=== PATIENT | male | born 1960 | race Caucasian/White ===

== ENCOUNTER 2017-10-11 07:59 | Emergency (ER) | payer SELFPAY ==
[2017-10-11] MEDS ORDERED: Ondansetron HCl/PF 4 MG/2 ML Vial ONE (08:31)
[2017-10-11] MEDS ORDERED: Famotidine/PF 20 mg/2ml Vial ONE (08:32)
[2017-10-11 08:37] LABS: #Basophils 0.1 thou/uL (0.0-0.2); #Eosinphils 0.4 thou/uL (0.0-0.7); #Lymphocytes 0.5 thou/uL (1.20-3.40); #Monocytes 1.5 thou/uL (0.11-0.59); #Neutrophils 10.3 thou/uL (1.40-6.50); %Basophils 0.9 % (0.0-1.0); %Eosinophils 2.9 % (0.0-10.0); %Lymphocytes 3.8 % (21.0-51.0); %Monocytes 11.8 % (0.0-10.0); %Neutrophils 80.7 % (42.0-75.0); Hemoglobin 12.3 g/dL (14.0-18.0); Mean Corpuscular HGB CONC 30.5 g/dL (32.0-36.0); Mean Corpuscular Hemoglobin 25.6 pg (27.0-31.0); Mean Corpuscular Volume 83.9 fl (80.0-94.0); Platelet Count 312 thou/uL (130-400); RBC Distribution Width 14.6 % (11.5-14.5); Red Blood Cell (RBC) Count 4.81 mill/uL (4.70-6.10); White Blood Cell (WBC) Count 12.7 thou/uL (4.8-10.8)
[2017-10-11 08:50] LABS: ALT (SGPT) 16 U/L (8-55); AST (SGOT) 17 U/L (5-34); Albumin 4.1 g/dL (3.5-5.0); Alkaline Phosphatase 92 U/L (40-150); Anion Gap 14 mmol/L (10-20); BUN (Urea Nitrogen) 10 mg/dL (8.4-25.7); Bilirubin, Total 0.2 mg/dL (0.2-1.2); Calc. Creatinine Clearance 0 mL/min (70-130); Calcium 9.9 mg/dL (7.8-10.44); Carbon Dioxide 24 mmol/L (22-29); Chloride 104 mmol/L (98-107); Estimated GFR-MDRD 82; Globulin 3.6 g/dL (2.4-3.5); Glucose 128 mg/dL (70-105); Potassium 3.6 mmol/L (3.5-5.1); Protein, Total 7.7 g/dL (6.0-8.3); Sodium 138 mmol/L (136-145)
--- NOTE | 2017-10-11 09:28 | RAD ---
RADIOGRAPH CHEST 1 VIEW RADIOGRAPH ABDOMEN 2 VIEWS: Date: 10/11/17. Time: 9:44 a.m. HISTORY: A 57-year-old male with nausea, emesis, fever, body aches, and cough. FINDINGS: Visualized lung mcguire are clear. Mild ectasia of thoracic aorta. Otherwise cardiomediastinal silho uette is within normal limits. The lateral costophrenic angles are sharp. No pneumothorax. No evidence of pneumoperitoneum. Gas and a moderate amount of stool in a prominent, redundant loop o f colon to the right of midline, probably sigmoid colon. Gas within a few mildly prominent small bow el loops in the left upper quadrant up to 2.5 cm in caliber, without differential air fluid levels. No evidence of organomegaly. IMPRESSION: 1. Nonspecific bowel gas pattern without overt evident of small bowel obstruction. 2. No acute cardiopulmonary findings. ELIN [] POS: [facility]
[2017-10-11] MEDS ORDERED: Albuterol Sulfate 2.5 mg/3 ml Neb ONE (09:57)
[2017-10-11] MEDS ORDERED: ISOVUE-370 76%-LOCM 1 ML ONE (11:16)
[2017-10-11] MEDS ORDERED: Benzonatate 100 MG CAP ONE (11:41)
--- NOTE | 2017-10-11 12:21 | CT ---
CTA THORAX WITH CONTRAST: (Computed Tomographic Angiography, chest(noncoronary) with contrast material, and image postprocessin g) (PE protocol) DATE: 10/11/17. TIME: 11:24 a.m. HISTORY: A 57-year-old male with tachycardia, hypoxemia, and cough. TECHNIQUE: IV injection of iodinated contrast. Scan acquisition timing attempted to coincide with iodinated contrast bolus reaching maximal density in pulmonary arteries. 3D MIP reconstructions. FINDINGS: No pulmonary thromboembolism is identified. No thoracic aortic dissection or aneurysm. Chronic mild biapical pleural densities abutting the apical pleural surfaces. No consolidation, pulmonary edema, bronchiectasis, pleural effusion, or pneumothorax. No mediastinal or hilar lymphadenopathy. Cysts at the upper pole parenchyma of the right kidney. Distended gallbladder without gallbladder wall thi ckening or pericholecystic edema. No mediastinal or hilar lymphadenopathy. IMPRESSION: No evidence of pulmonary thromboembolism. janette[] POS: [facility]
== END 2017-10-11 13:29 | disposition home or self-care (01) ==
LOC: ERS 07:59
DX: R11.2 Nausea with vomiting, unspecified (principal); R05 Cough; F41.9 Anxiety disorder, unspecified; F32.9 Major depressive disorder, single episode, unspecified; Z79.899 Other long term (current) drug therapy
CPT/HCPCS: 71275; 74022; 80053; 83605; 85025; 87804; 96361; 96372; 96374; 96375; J2405; J7611; S0028

== ENCOUNTER 2018-03-02 14:41 | Emergency (ER) | payer SELFPAY ==
[2018-03-02] MEDS ORDERED: diphenhydrAMINE 50 MG/ML VIAL ONE (15:33)
[2018-03-02] MEDS ORDERED: Metoclopramide HCl 10 MG/2 ML VIAL ONE (15:34)
[2018-03-02] MEDS ORDERED: Ketorolac Tromethamine 30 MG/ML VIAL ONE (15:34)
[2018-03-02] MEDS ORDERED: Magnesium Sulfate 2 GM/100 ML BAG ONE (17:09)
[2018-03-02] MEDS ORDERED: Water For Inject, Bacteriostat 30 ML ONE (17:09)
[2018-03-02] MEDS ORDERED: methylPREDNISolone Sod Succ/PF 125 MG/2 ML VIAL ONE (17:09)
== END 2018-03-02 18:21 | disposition home or self-care (01) ==
LOC: ERS 14:41
DX: R51 Headache (principal); I10 Essential (primary) hypertension; G43.909 Migraine, unspecified, not intractable, without status migrainosus; F41.9 Anxiety disorder, unspecified; F32.9 Major depressive disorder, single episode, unspecified; Z79.899 Other long term (current) drug therapy
CPT/HCPCS: 96365; 96367; 96375; J1200; J1885; J2765; J2930; J3475

== ENCOUNTER 2018-03-08 07:03 | Emergency (ER) | payer SELFPAY ==
[2018-03-08] MEDS ORDERED: diphenhydrAMINE 50 MG/ML VIAL ONE (07:44)
[2018-03-08] MEDS ORDERED: Metoclopramide HCl 10 MG/2 ML VIAL ONE (07:44)
[2018-03-08] MEDS ORDERED: Ondansetron ODT 4 MG TAB ONE (08:53)
[2018-03-08] MEDS ORDERED: Dexamethasone 10 MG/ML VIAL ONE (09:15)
[2018-03-08] MEDS ORDERED: Magnesium Sulfate 2 GM/100 ML BAG ONE (09:15)
[2018-03-08] MEDS ORDERED: Acetaminophen 500 MG TAB ONE (09:15)
--- NOTE | 2018-03-08 11:28 | CT ---
CT BRAIN NONCONTRAST: Date: 03/08/18 Time: 0919 hours HISTORY: 57-year-old male with headache, nausea, and vomiting. COMPARISON: 11/12/06. FINDINGS: There is no midline shift or any other mass effect. There is no evidence of acute intracranial hemor rhage, large cortical infarct, obstructive hydrocephalus, or extraaxial fluid collection. The calvar ium is intact. There is mild enlargement of the lateral, third, and fourth ventricles, unchanged since 11/12/06. The re is no interval change overall. The bilateral tympanomastoid cavities, and the sphenoid and frontal sinuses, are grossly clear. IMPRESSION: 1. No acute intracranial findings. 2. Mild chronic ventriculomegaly, unchanged since 2006. janette medley POS: [facility]
== END 2018-03-08 10:50 | disposition home or self-care (01) ==
LOC: ERS 07:03
DX: R51 Headache (principal); I10 Essential (primary) hypertension; F41.9 Anxiety disorder, unspecified; F32.9 Major depressive disorder, single episode, unspecified; G43.909 Migraine, unspecified, not intractable, without status migrainosus; Z79.899 Other long term (current) drug therapy
CPT/HCPCS: 70450; 96365; 96367; 96375; J1100; J1200; J2765; J3475; Q0162

== ENCOUNTER 2018-03-10 11:51 | Inpatient (IN) | payer SELFPAY ==
[~2018-03-10 11:51] MED LIST: Iopamidol 370 76% 100 ML VIAL ONE
[2018-03-10 12:22] LABS: #Eosinphils 0.1 thou/uL (0.0-0.7); #Lymphocytes 1.3 thou/uL (1.20-3.40); #Monocytes 0.7 thou/uL (0.11-0.59); #Neutrophils 6.5 thou/uL (1.40-6.50); %Basophils 0.5 % (0.0-1.0); %Eosinophils 1.2 % (0.0-10.0); %Lymphocytes 14.5 % (21.0-51.0); %Monocytes 8.1 % (0.0-10.0); %Neutrophils 75.7 % (42.0-75.0); Mean Corpuscular HGB CONC 32.4 g/dL (32.0-36.0); Mean Corpuscular Hemoglobin 27.1 pg (27.0-31.0); Mean Corpuscular Volume 83.7 fl (80.0-94.0); Mean Platelet Volume 6.9 fL (7.4-10.4); Platelet Count 297 thou/uL (130-400); RBC Distribution Width 12.7 % (11.5-14.5); Red Blood Cell (RBC) Count 4.43 mill/uL (4.70-6.10); White Blood Cell (WBC) Count 8.6 thou/uL (4.8-10.8)
[2018-03-10 12:44] LABS: ALT (SGPT) 55 U/L (8-55); AST (SGOT) 47 U/L (5-34); Albumin 3.9 g/dL (3.5-5.0); Alkaline Phosphatase 70 U/L (40-150); Anion Gap 14 mmol/L (10-20); BUN (Urea Nitrogen) 32 mg/dL (8.4-25.7); Bilirubin, Total 0.2 mg/dL (0.2-1.2); CK (CPK) 161 U/L (30-200); Calc. Creatinine Clearance 0 mL/min (70-130); Calcium 9.3 mg/dL (7.8-10.44); Carbon Dioxide 21 mmol/L (22-29); Chloride 107 mmol/L (98-107); Estimated GFR-MDRD 48; Globulin 3.1 g/dL (2.4-3.5); Glucose 158 mg/dL (70-105); Lipase 28 U/L (8-78); Potassium 3.4 mmol/L (3.5-5.1); Sodium 139 mmol/L (136-145)
[2018-03-10 12:48] LABS: CKMB 3.8 ng/mL (0-6.6); Troponin I 0.196 ng/mL (< 0.028)
--- NOTE | 2018-03-10 13:08 | RAD ---
PORTABLE CHEST: Date: 03/10/18 HISTORY: Chest pain. FINDINGS: Lungs are clear. Heart and mediastinum appear normal. Vasculature is normal. IMPRESSION: No acute abnormality. POS: [facility]
[2018-03-10] MEDS ORDERED: Nitroglycerin 2% Ointment 1 INCH/1 GM Packet ONE (13:15)
[2018-03-10] MEDS ORDERED: Ondansetron HCl/PF 4 MG/2 ML Vial IVP PRN (13:28)
[2018-03-10] MEDS ORDERED: Ondansetron ODT 4 MG TAB PO PRN (13:28)
[2018-03-10] MEDS ORDERED: Sodium Chloride 0.9% 1,000 ML IV SCH (13:30)
[2018-03-10] MEDS ORDERED: Enoxaparin Sodium 80 MG/0.8 ML SYRINGE SC SCH (13:30)
[2018-03-10] MEDS ORDERED: Morphine 4 MG/ML Carpuject SLOW IVP PRN (13:37)
[2018-03-10] MEDS ORDERED: Potassium Chloride 20 MEQ TAB PO SCH (13:45)
[2018-03-10] MEDS ORDERED: Lidocaine 1% (PF) 30 ML VIAL ONE (14:07)
[2018-03-10] MEDS ORDERED: Midazolam HCl 2 mg/2 ml Vial ONE (14:23)
[2018-03-10] MEDS ORDERED: Fentanyl 100 MCG/2 ML VIAL ONE (14:23)
[2018-03-10] MEDS ORDERED: Clopidogrel Bisulfate 75 MG TAB PO SCH (14:30)
--- NOTE | 2018-03-10 14:39 | PDOC.EVN ---
Event Note - Event Note Event Note: H&P dictated. [id number]
[2018-03-10] MEDS ORDERED: Heparin 5,000 UNITS/ML VIAL SC SCH (15:00)
--- NOTE | 2018-03-10 15:37 | CON ---
DATE OF CONSULTATION: 03/10/2018 HISTORY OF PRESENT ILLNESS: Patient is a 57-year-old gentleman who presents for evaluation of chest discomfort. The patient has no previous cardiac history. He states a few years ago he had substernal chest discomfort. He did not seek medical attention. The patient was in his usual state of health until yesterday when he developed substernal left-sided chest discomfort. The discomfort lasted for approximately an hour. The painresolved and then subsequently returned. He came to the emergency room for further evaluation. The patient denies having any present chest discomfort. PAST MEDICAL HISTORY: Depression. PAST SURGICAL HISTORY: Knee surgery and hand surgery. SOCIAL HISTORY: Nonsmoker. ALLERGIES: No known drug allergies. MEDICATIONS: Seroquel 300 daily, doxepin 10 daily, Synthroid 125 mcg daily, Norvasc 2.5 daily, Imitrex 100 daily, and lorazepam 2 mg p.r.n. PHYSICAL EXAMINATION: GENERAL: Well-developed gentleman in no acute distress. VITAL SIGNS: His blood pressure is 147/85. NECK: No jugular distention, no carotid bruits. LUNGS: Clear to auscultation. HEART: Regular rate and rhythm, normal S1, S2, no murmurs. ABDOMEN: Nondistended. EXTREMITIES: Show no edema. SKIN: Warm and dry. LABORATORY DATA AND IMAGING DATA: White blood cell count was 8.6, hemoglobin 12.0, hematocrit 37.1, platelets were 297. Sodium was 139, potassium 3.4, chloride 106, bicarbonate 21, BUN 32, creatinine is 1.5. Troponin 0.196. EKG revealed normal sinus rhythm, nonspecific ST-T wave abnormality. IMPRESSION: 1. Chest pain suggestive of angina. 2. Hypertension. 3. Elevated troponin level. 4. History of depression. This gentleman presents with chest pain suggestive of angina. His troponin is indeterminate, but elevated. I discussed the option of medical therapy and stress testing versus an invasive evaluation. The patient strongly forced to have a definitive diagnosis, He prefers to undergo cardiac catheterization for definitive diagnosis. I explained the risk of cardiac catheterization including IL, bleeding, stroke, cardiac arrhythmia, and cardiac . The patient understands these risks and wishes to proceed. PLAN: Proceed with cardiac catheterization. IESHA
--- NOTE | 2018-03-10 15:38 | HP ---
DATE OF ADMISSION: 03/10/2018 PRIMARY CARE PHYSICIAN: Juliana with Dr. Hill. CHIEF COMPLAINT: Chest pain. HISTORY OF PRESENT ILLNESS: The patient is a 57-year-old gentleman with no past cardiac history, but with a history of hypertension, hyperlipidemia who presents for chest pain that started yesterday. The patient was at work and he felt some chest tightness and substernal pressure and the pain radiate d down his left arm. He reports no diaphoresis or nausea, but he did feel dizzy. He denies any exer tional shortness of breath. He stated that the pain subsided, but came back at a lower intensity tod ay. He stated that the pain was substernal again, but radiated around to his back. He came to the e mergency department. Vitals were stable. The patient did have a slightly elevated troponin of 0.196 , but creatinine was 1.5, which is slightly more elevated than normal. Lipase was negative. He did have slightly low potassium with a potassium of 3.4. The patient states that at this time his pain i s around 4/10. REVIEW OF SYSTEMS: A 12-point review of systems is negative except that specified in the HPI. PAST MEDICAL HISTORY/PAST SURGICAL HISTORY: The patient has a history of hypertension, hyperlipidemi a, right knee surgery as well as right hand surgery in the past. SOCIAL HISTORY: No history of smoking, alcohol or any illicit drugs. FAMILY HISTORY: Father had coronary artery disease and had 3 MIs, unclear what age that happened at. HOME MEDICATIONS: 1. Norvasc 2.5 mg p.o. daily. 2. Doxepin 20 mg once a day at bedtime. 3. Imitrex 100 mg p.o. q.6 hours p.r.n. 4. Synthroid 125 mcg p.o. daily. 5. Seroquel 300 mg 2 tabs p.o. once a day in the evening. 6. Ativan 2 mg p.o. p.r.n. ALLERGIES: No known drug allergies. PHYSICAL EXAMINATION: VITAL SIGNS: In the ED, temperature 97.9, respirations are 16, pulse 86, blood pressure is 127/86. GENERAL: Awake, alert and oriented, in no acute distress. HEENT: Mucous membranes moist. NECK: No JVD. HEART: Regular rate and rhythm. No murmurs, rubs or gallops. Pain is not reproducible on palpation . LUNGS: Clear to auscultation bilaterally. ABDOMEN: Nontender, nondistended. EXTREMITIES: No cyanosis, clubbing or edema. LABORATORY DATA: Sodium 139, potassium 3.4, chloride 107, bicarbonate 21, BUN 32, creatinine 1.5, gl ucose 158, calcium 9.3, AST 47, ALT 55, alkaline phosphatase 70, creatinine kinase 161. Troponins at 0.196, albumin 3.9, lipase 28. CBC demonstrates a white count of 8.6, hemoglobin of 12, hematocrit of 37.1 and platelets of 297,000. Chest x-ray was negative for any acute abnormalities. I did perso regla review the EKG obtained and it does demonstrate some T-wave flattening. ASSESSMENT AND PLAN: The patient is 57-year-old gentleman with a past medical history of hypertensio n, hyperlipidemia and hypothyroidism who presents with chest pain. There are some minimally elevated troponins. However, in the setting of chest pain and cardiac risk factors, I would consider this a non-ST elevation myocardial infarction. 1. Non-ST elevation myocardial infarction. I did call Dr. Ross from Cardiology. We will attemp t to get the patient's pain under control with either nitroglycerin drip or nitro paste. We have alr samir given 4 chewable baby aspirin. We will give one dose of Plavix as well. Cardiology did state t o hold off on heparin drip per subcutaneous Lovenox in case of cardiac catheterization. Morphine p.r .n. for pain as well. We will trend out cardiac biomarkers. 2. Acute kidney injury with hypokalemia: Hydrate with normal saline. Replete potassium. 3. Hypertension: Well controlled. Restart home medications of Norvasc. May need a beta joyce de pending on cardiac evaluation. 4. Hypothyroidism: Continue Synthroid. 5. Deep venous thrombosis prophylaxis: Subcutaneous heparin. 6. The patient is a full code and this was confirmed at bedside.
[2018-03-10 15:50] VITALS: BMI 28.6
[2018-03-10 16:31] LABS: Anion Gap 11 mmol/L (10-20); BUN (Urea Nitrogen) 28 mg/dL (8.4-25.7); Calc. Creatinine Clearance 79 mL/min (70-130); Calcium 8.7 mg/dL (7.8-10.44); Carbon Dioxide 22 mmol/L (22-29); Chloride 108 mmol/L (98-107); Estimated GFR-MDRD 62; Glucose 80 mg/dL (70-105); Potassium 3.7 mmol/L (3.5-5.1); Sodium 137 mmol/L (136-145)
[2018-03-10 16:39] LABS: Troponin I 0.159 ng/mL (< 0.028)
[2018-03-10] MEDS: Sodium Chloride 0.9% 1,000 ML IV SCH (17:04)
[2018-03-10] MEDS: Acetaminophen 500 MG TAB PO PRN (18:59)
[2018-03-10] MEDS ORDERED: Atorvastatin Calcium 40 MG TAB PO SCH (21:00)
[2018-03-10] MEDS ORDERED: Lorazepam 1 MG TAB PO SCH (21:00)
[2018-03-10] MEDS ORDERED: Doxepin HCl 10 MG CAP PO SCH (21:00)
[2018-03-11] MEDS: Sodium Chloride 0.9% 1,000 ML IV SCH (03:36)
[2018-03-11 05:22] LABS: #Eosinphils 0.1 thou/uL (0.0-0.7); #Lymphocytes 1.3 thou/uL (1.20-3.40); #Monocytes 0.8 thou/uL (0.11-0.59); #Neutrophils 4.2 thou/uL (1.40-6.50); %Basophils 0.6 % (0.0-1.0); %Lymphocytes 19.7 % (21.0-51.0); %Monocytes 12.5 % (0.0-10.0); %Neutrophils 65.1 % (42.0-75.0); Hemoglobin 11.1 g/dL (14.0-18.0); Mean Corpuscular HGB CONC 30.4 g/dL (32.0-36.0); Mean Corpuscular Hemoglobin 25.8 pg (27.0-31.0); Mean Corpuscular Volume 84.8 fl (80.0-94.0); Mean Platelet Volume 6.7 fL (7.4-10.4); Platelet Count 259 thou/uL (130-400); RBC Distribution Width 12.7 % (11.5-14.5); Red Blood Cell (RBC) Count 4.32 mill/uL (4.70-6.10); White Blood Cell (WBC) Count 6.4 thou/uL (4.8-10.8)
[2018-03-11 05:36] LABS: ALT (SGPT) 50 U/L (8-55); AST (SGOT) 32 U/L (5-34); Albumin 3.4 g/dL (3.5-5.0); Alkaline Phosphatase 64 U/L (40-150); Anion Gap 10 mmol/L (10-20); BUN (Urea Nitrogen) 23 mg/dL (8.4-25.7); Bilirubin, Total 0.2 mg/dL (0.2-1.2); Calc. Creatinine Clearance 111 mL/min (70-130); Calcium 8.5 mg/dL (7.8-10.44); Carbon Dioxide 21 mmol/L (22-29); Chloride 110 mmol/L (98-107); Estimated GFR-MDRD Greater than 90; Globulin 2.6 g/dL (2.4-3.5); Glucose 113 mg/dL (70-105); Potassium 4.1 mmol/L (3.5-5.1); Sodium 137 mmol/L (136-145)
[2018-03-11] MEDS ORDERED: Levothyroxine Sodium 125 MCG TAB PO SCH (06:00)
[2018-03-11 08:18] VITALS: BP 138/78; TEMP 97.6
--- NOTE | 2018-03-11 08:30 | PDOC.PN ---
- Subjective Encounter Start Date: 03/11/18 Encounter Start Time: 08:28 Subjective: no chest pain - Objective MAR Reviewed: Yes Vital Signs & Weight: Vital Signs (12 hours) Temp Pulse Resp BP Pulse Ox 03/11/18 07:20 97.6 F 76 16 138/78 97 03/11/18 03:17 97.8 F 72 16 162/83 H 96 03/10/18 23:52 97.5 F L 79 16 121/76 97 Weight Weight 178 lb I&O: 03/10/18 03/11/18 03/12/18 06:59 06:59 06:59 Intake Total 2119 Output Total 1800 Balance 319 Result Diagrams: 03/11/18 05:01 03/11/18 05:01 Phys Exam - Physical Examination Neck: no JVD Respiratory: clear to auscultation bilateral Cardiovascular: RRR, no significant murmur Gastrointestinal: soft, non-tender Musculoskeletal: no edema Dx/Plan (1) Non-cardiac chest pain Code(s): R07.89 - OTHER CHEST PAIN Status: Resolved (2) HTN (hypertension) Code(s): I10 - ESSENTIAL (PRIMARY) HYPERTENSION Status: Chronic Qualifiers: Hypertension type: essential hypertension Qualified Code(s): I10 - Essential (primary) hypertension (3) Dyslipidemia Code(s): E78.5 - HYPERLIPIDEMIA, UNSPECIFIED Status: Chronic (4) Acute renal failure Status: Resolved Qualifiers: Acute renal failure type: unspecified Qualified Code(s): N17.9 - Acute kidney failure, unspecified - Plan cath normal, FU with Dr Ross for DC * .
[2018-03-11] MEDS ORDERED: Aspirin 81 mg Enteric Coated Tablet PO SCH (09:00)
[2018-03-11] MEDS ORDERED: Amlodipine 5 MG TAB PO SCH (09:00)
[2018-03-11] MEDS: Acetaminophen 500 MG TAB PO PRN (09:10)
--- NOTE | 2018-03-11 09:56 | DIS ---
DATE OF ADMISSION: 03/10/2018 DATE OF DISCHARGE: 03/11/2018 PRIMARY CARE PROVIDER: Hugo Hill M.D. DISCHARGE DISPOSITION: Home. FINAL DIAGNOSES: Noncardiac chest pain, abnormal troponin level, acute renal failure resolved, hypertension, dyslipidemia. DISCHARGE MEDICATIONS: New, aspirin 81 mg a day, lipitor 40 mg a day. home meds to continue: Amlodipine 2.5 mg a day, Imitrex 100 mg p.o. q.6 hours p.r.n. , lorazepam 2 mg at bedtime, Seroquel 600 mg p.o. at bedtime, levothyroxine 125 mcg a day, doxepin 20 mg p.o. at bedtime. ALLERGIES: No known drug allergies. PENDING AT THE TIME OF DISCHARGE: Nothing. CODE STATUS: FULL. CONSULTATIONS: None. DIET: Heart healthy. CONSULTATIONS: Dr. Guido Ross. PROCEDURES: Cardiac catheterization on 03/10/2018. HOSPITAL COURSE: The patient admitted with chest pain described as tightness, substernal, radiating down left arm. No associated symptoms. Troponin was 0.196 and creatinine was 1.52. T-wave showed no acute ST-T abnormality. The patient went to cardiac catheterization lab. Catheterization report LAD, no stenosis; left circumflex, no stenosis; right coronary artery, no stenosis; left main 20% ostial lesion. PERTINENT LABORATORY DATA: White count 8.6, hemoglobin 12.0, and platelet count 297,000. Troponin 0.196 and 0.159, creatinine 1.5, followed up 1.21, follow up 0.84. Patient has no further chest pain. Situation has been discussed with Dr. Ross. She is being discharged for followup with Dr. Hill in 1 week. Follow up with Dr. Ross per his recommendations. [facility]
== END 2018-03-11 11:24 | disposition home or self-care (01) | DRG 287 ==
LOC: ERS 11:51 → OBSVTOIN 15:29 → 2SW 15:29 → 2NO 18:52
PROVIDERS: ADMIT Internal Medicine; ATTEND Internal Medicine
PROC: 4A023N7 Measurement of Cardiac Sampling and Pressure, Left Heart, Percutaneous Approach (ICD-10-PCS; principal; 2018-03-10)
PROC: B2111ZZ Fluoroscopy of Multiple Coronary Arteries using Low Osmolar Contrast (ICD-10-PCS; 2018-03-10)
DX: R07.89 Other chest pain (principal); N17.9 Acute kidney failure, unspecified; I10 Essential (primary) hypertension; E78.5 Hyperlipidemia, unspecified; Z79.82 Long term (current) use of aspirin; Z85.01 Personal history of malignant neoplasm of esophagus; G64 Other disorders of peripheral nervous system; G43.909 Migraine, unspecified, not intractable, without status migrainosus; E87.6 Hypokalemia; E03.9 Hypothyroidism, unspecified; F32.9 Major depressive disorder, single episode, unspecified; Z82.49 Family history of ischemic heart disease and other diseases of the circulatory system; R79.89 Other specified abnormal findings of blood chemistry
CPT/HCPCS: 36415; 71045; 80053; 82553; 83690; 84484; 85025; 93005; 93306; 93458; 99152; 99153; A4216; C1769; J1644; J2001; J2250; J3010

== ENCOUNTER 2018-03-15 11:36 | Emergency (ER) | payer SELFPAY ==
[2018-03-15] MEDS ORDERED: Metoclopramide HCl 10 MG/2 ML VIAL ONE (12:09)
[2018-03-15] MEDS ORDERED: Ketorolac Tromethamine 30 MG/ML VIAL ONE (12:09)
[2018-03-15] MEDS ORDERED: Dexamethasone 4 MG TAB ONE (14:22)
[2018-03-15] MEDS ORDERED: Magnesium Sulfate 2 GM/100 ML BAG ONE (14:22)
[2018-03-15] MEDS ORDERED: Dexamethasone 10 MG/ML VIAL ONE (14:23)
== END 2018-03-15 16:40 | disposition home or self-care (01) ==
LOC: ERS 11:36
DX: G43.909 Migraine, unspecified, not intractable, without status migrainosus (principal); E03.9 Hypothyroidism, unspecified; I10 Essential (primary) hypertension; Z79.899 Other long term (current) drug therapy
CPT/HCPCS: 96365; 96375; J1100; J1885; J2765; J3475; J8540

== ENCOUNTER 2018-03-20 09:12 | Emergency (ER) | payer SELFPAY ==
[2018-03-20] MEDS ORDERED: Metoclopramide HCl 10 MG/2 ML VIAL ONE (09:22)
[2018-03-20] MEDS ORDERED: diphenhydrAMINE 50 MG/ML VIAL ONE (09:22)
[2018-03-20] MEDS ORDERED: Ketorolac Tromethamine 30 MG/ML VIAL ONE (10:50)
[2018-03-20] MEDS ORDERED: Ondansetron ODT 8 MG TAB ONE (12:16)
== END 2018-03-20 12:39 | disposition home or self-care (01) ==
LOC: ERS 09:12
DX: G43.909 Migraine, unspecified, not intractable, without status migrainosus (principal); E03.9 Hypothyroidism, unspecified; I10 Essential (primary) hypertension; F41.9 Anxiety disorder, unspecified; F32.9 Major depressive disorder, single episode, unspecified; Z79.899 Other long term (current) drug therapy
CPT/HCPCS: 96365; 96375; J1200; J1885; J2765

== ENCOUNTER 2018-03-22 12:18 | Emergency (ER) | payer SELFPAY ==
[2018-03-22] MEDS ORDERED: diphenhydrAMINE 50 MG/ML VIAL ONE (13:02)
[2018-03-22] MEDS ORDERED: Acetaminophen 500 MG TAB ONE (13:02)
[2018-03-22] MEDS ORDERED: Metoclopramide HCl 10 MG/2 ML VIAL ONE (13:02)
[2018-03-22] MEDS ORDERED: Lidocaine Viscous Sol 2% 15 ml UD Cup ONE (14:07)
== END 2018-03-22 14:43 | disposition home or self-care (01) ==
LOC: ERS 12:18
DX: G43.909 Migraine, unspecified, not intractable, without status migrainosus (principal); E03.9 Hypothyroidism, unspecified; I10 Essential (primary) hypertension; F41.9 Anxiety disorder, unspecified; F32.9 Major depressive disorder, single episode, unspecified; Z85.01 Personal history of malignant neoplasm of esophagus; Z92.3 Personal history of irradiation; Z92.21 Personal history of antineoplastic chemotherapy; Z79.899 Other long term (current) drug therapy
CPT/HCPCS: 64505; 96365; 96375; J1200; J2765

== ENCOUNTER 2018-04-25 16:09 | Emergency (ER) | payer SELFPAY ==
[2018-04-25 17:07] LABS: #Eosinphils 0.2 thou/uL (0.0-0.7); #Lymphocytes 1.1 thou/uL (1.20-3.40); #Neutrophils 7.4 thou/uL (1.40-6.50); %Basophils 0.4 % (0.0-1.0); %Eosinophils 1.7 % (0.0-10.0); %Monocytes 10.2 % (0.0-10.0); %Neutrophils 76.7 % (42.0-75.0); Hemoglobin 13.5 g/dL (14.0-18.0); Mean Corpuscular HGB CONC 33.4 g/dL (32.0-36.0); Mean Corpuscular Hemoglobin 27.6 pg (27.0-31.0); Mean Corpuscular Volume 82.6 fL (78.0-98.0); Mean Platelet Volume 6.2 fL (7.4-10.4); Platelet Count 320 thou/uL (130-400); RBC Distribution Width 13.3 % (11.5-14.5); Red Blood Cell (RBC) Count 4.89 mill/uL (4.70-6.10); White Blood Cell (WBC) Count 9.6 thou/uL (4.8-10.8)
[2018-04-25 17:34] LABS: ALT (SGPT) 19 U/L (8-55); AST (SGOT) 15 U/L (5-34); Albumin 4.4 g/dL (3.5-5.0); Alkaline Phosphatase 74 U/L (40-150); Anion Gap 14 mmol/L (10-20); BUN (Urea Nitrogen) 16 mg/dL (8.4-25.7); Bilirubin, Total 0.3 mg/dL (0.2-1.2); Calc. Creatinine Clearance 0 mL/min (70-130); Calcium 9.8 mg/dL (7.8-10.44); Carbon Dioxide 24 mmol/L (22-29); Chloride 103 mmol/L (98-107); Estimated GFR-MDRD 75; Globulin 3.2 g/dL (2.4-3.5); Glucose 97 mg/dL (70-105); Potassium 4.2 mmol/L (3.5-5.1); Protein, Total 7.6 g/dL (6.0-8.3); Sodium 137 mmol/L (136-145)
== END 2018-04-25 17:00 | disposition left against medical advice (07) ==
LOC: ERS 16:09
DX: Z53.21 Procedure and treatment not carried out due to patient leaving prior to being seen by health care provider (principal)
CPT/HCPCS: 36415; 80053; 85025

== ENCOUNTER 2018-04-26 10:32 | Emergency (ER) | payer SELFPAY ==
[2018-04-26] MEDS ORDERED: Ketorolac Tromethamine 30 MG/ML VIAL ONE (11:50)
[2018-04-26] MEDS ORDERED: diphenhydrAMINE 50 MG/ML VIAL ONE (11:50)
[2018-04-26] MEDS ORDERED: Ondansetron ODT 4 MG TAB ONE (11:51)
[2018-04-26] MEDS ORDERED: Metoclopramide HCl 10 MG/2 ML VIAL ONE (12:52)
[2018-04-26] MEDS ORDERED: Magnesium 2 GM/NS 0.9% 100 ML 2 GM in Premix Bag 1 BAG IVPB SCH (13:00)
[2018-04-26] MEDS ORDERED: Magnesium Sulfate 2 GM in Sodium Chloride 0.9% 100 ML IVPB SCH (13:00)
== END 2018-04-26 15:53 | disposition home or self-care (01) ==
LOC: ERS 10:32
DX: R51 Headache (principal); E03.9 Hypothyroidism, unspecified; I10 Essential (primary) hypertension; G43.909 Migraine, unspecified, not intractable, without status migrainosus; F41.9 Anxiety disorder, unspecified; F32.9 Major depressive disorder, single episode, unspecified; Z79.899 Other long term (current) drug therapy
CPT/HCPCS: 96361; 96365; 96368; 96375; J1200; J1885; J2765; J3475; J7050; Q0162

== ENCOUNTER 2019-06-01 12:24 | Emergency (ER) | payer MEDICARE, OTHER ==
[2019-06-01] MEDS ORDERED: Acetaminophen 500 MG TAB ONE (13:21)
[2019-06-01] MEDS ORDERED: diphenhydrAMINE 50 MG/ML VIAL ONE (13:22)
[2019-06-01] MEDS ORDERED: Metoclopramide HCl 10 MG/2 ML VIAL ONE (13:22)
[2019-06-01 13:52] LABS: #Basophils 0.1 thou/uL (0.0-0.2); #Eosinphils 0.1 thou/uL (0.0-0.7); #Lymphocytes 0.7 thou/uL (1.20-3.40); #Monocytes 0.7 thou/uL (0.11-0.59); #Neutrophils 5.7 thou/uL (1.40-6.50); %Basophils 0.8 % (0.0-1.0); %Eosinophils 1.8 % (0.0-10.0); %Monocytes 9.4 % (0.0-10.0); Hemoglobin 12.1 g/dL (14.0-18.0); Mean Corpuscular Hemoglobin 25.7 pg (27.0-31.0); Mean Platelet Volume 7.1 fL (7.4-10.4); Platelet Count 283 thou/uL (130-400); RBC Distribution Width 13.4 % (11.5-14.5); Red Blood Cell (RBC) Count 4.71 mill/uL (4.70-6.10); White Blood Cell (WBC) Count 7.3 thou/uL (4.8-10.8)
[2019-06-01 14:21] LABS: ALT (SGPT) 16 U/L (8-55); AST (SGOT) 14 U/L (5-34); Albumin 3.7 g/dL (3.5-5.0); Alkaline Phosphatase 68 U/L (40-150); Anion Gap 11 mmol/L (10-20); BUN (Urea Nitrogen) 15 mg/dL (8.4-25.7); Bilirubin, Total 0.2 mg/dL (0.2-1.2); Calc. Creatinine Clearance 0 mL/min (70-130); Calcium 8.9 mg/dL (7.8-10.44); Carbon Dioxide 25 mmol/L (22-29); Chloride 106 mmol/L (98-107); Estimated GFR-MDRD 76; Globulin 2.7 g/dL (2.4-3.5); Glucose 130 mg/dL (70-105); Potassium 4.1 mmol/L (3.5-5.1); Protein, Total 6.4 g/dL (6.0-8.3); Sodium 138 mmol/L (136-145)
--- NOTE | 2019-06-01 15:46 | RAD ---
PA AND LATERAL VIEWS CHEST: HISTORY: Headache and vomiting. FINDINGS: Comparison is made with the chest x-ray of 03/10/2018 and correlation was made with the CT pulmonary a ngiogram of 10/11/2017. The heart size is normal. No focal areas of consolidation, pneumothoraces, or pleural effusions are seen. There is scarring in the lung apices. No acute osseous abnormalities are seen. IMPRESSION: No radiographic evidence of acute cardiopulmonary process. POS: [facility]
--- NOTE | 2019-06-01 16:03 | CT ---
CT OF HEAD NONCONTRAST: 06/01/19 INDICATION: Headache. FINDINGS: Reference made to 03/08/18 exam. Redemonstration of enlargement of ventricular system. No interval acute intracranial hemorrhage or ma ss effect or midline shift. Paranasal sinuses are free from acute fluid level. There is trace mucosal thickening. IMPRESSION: Stable head CT with persistent enlargement of the ventricular system. Correlate clinically. No acute intracranial hemorrhage or mass effect. POS: [facility]
[2019-06-01] MEDS ORDERED: Ketorolac Tromethamine 30 MG/ML VIAL ONE (16:11)
[2019-06-01] MEDS ORDERED: Dexamethasone 4 mg/ml Vial ONE (16:11)
--- NOTE | 2019-06-03 15:22 | EKG ---
Test Reason : Blood Pressure : / mmHG Vent. Rate : 117 BPM Atrial Rate : 117 BPM P-R Int : 148 ms QRS Dur : 090 ms QT Int : 330 ms P-R-T Axes : 035 -33 070 degrees QTc Int : 460 ms Sinus tachycardia Left axis deviation Abnormal ECG Left Anterior Fascicular Block Confirmed by ELIE FARR DO ([id number]), newspaper or periodical editor [facility] ([id number]) on 06/03/2019 3:22:14 PM Referred By: Confirmed By:ELIE FARR DO
== END 2019-06-01 16:25 | disposition home or self-care (01) ==
LOC: ERS 12:24
DX: R51 Headache (principal); R11.2 Nausea with vomiting, unspecified; I10 Essential (primary) hypertension; E03.9 Hypothyroidism, unspecified; Z79.899 Other long term (current) drug therapy
CPT/HCPCS: 36415; 70450; 71046; 80053; 84484; 85025; 93005; 96365; 96375; J1100; J1200; J1885; J2765

== ENCOUNTER 2019-07-03 12:54 | Emergency (ER) | payer MEDICARE ==
[2019-07-03 14:20] LABS: #Basophils 0.1 thou/uL (0.0-0.2); #Eosinphils 0.3 thou/uL (0.0-0.7); #Lymphocytes 1.1 thou/uL (1.20-3.40); #Monocytes 0.9 thou/uL (0.11-0.59); #Neutrophils 5.2 thou/uL (1.40-6.50); %Basophils 0.8 % (0.0-1.0); %Eosinophils 3.6 % (0.0-10.0); %Lymphocytes 14.2 % (21.0-51.0); %Monocytes 11.9 % (0.0-10.0); %Neutrophils 69.4 % (42.0-75.0); Hemoglobin 13.5 g/dL (14.0-18.0); Mean Corpuscular HGB CONC 32.6 g/dL (32.0-36.0); Mean Corpuscular Hemoglobin 27.2 pg (27.0-31.0); Mean Corpuscular Volume 83.6 fL (78.0-98.0); Mean Platelet Volume 7.1 fL (7.4-10.4); Platelet Count 320 thou/uL (130-400); RBC Distribution Width 13.9 % (11.5-14.5); Red Blood Cell (RBC) Count 4.95 mill/uL (4.70-6.10); White Blood Cell (WBC) Count 7.5 thou/uL (4.8-10.8)
[2019-07-03] MEDS ORDERED: Ketorolac Tromethamine 30 MG/ML VIAL ONE (14:34)
[2019-07-03] MEDS ORDERED: Metoclopramide HCl 10 MG/2 ML VIAL ONE (14:34)
[2019-07-03] MEDS ORDERED: methylPREDNISolone Sod Succ/PF 125 MG/2 ML VIAL ONE (14:34)
[2019-07-03] MEDS ORDERED: diphenhydrAMINE 50 MG/ML VIAL ONE (14:34)
[2019-07-03 14:39] LABS: Anion Gap 11 mmol/L (10-20); BUN (Urea Nitrogen) 18 mg/dL (8.4-25.7); Calc. Creatinine Clearance 0 mL/min (70-130); Calcium 9.8 mg/dL (7.8-10.44); Carbon Dioxide 23 mmol/L (22-29); Chloride 105 mmol/L (98-107); Estimated GFR-MDRD 76; Glucose 98 mg/dL (70-105); Sodium 135 mmol/L (136-145)
== END 2019-07-03 16:07 | disposition home or self-care (01) ==
LOC: ERS 12:54
DX: R51 Headache (principal); R11.2 Nausea with vomiting, unspecified; I10 Essential (primary) hypertension; E03.9 Hypothyroidism, unspecified; F32.9 Major depressive disorder, single episode, unspecified; Z79.899 Other long term (current) drug therapy
CPT/HCPCS: 36415; 80048; 85025; 96365; 96375; J1200; J1885; J2765; J2930

== ENCOUNTER 2019-08-09 13:25 | Emergency (ER) | payer MEDICARE ==
[2019-08-09] MEDS ORDERED: Ondansetron PF 4 MG/2 ML Vial ONE (14:35)
[2019-08-09] MEDS ORDERED: Ketorolac Tromethamine 30 MG/ML VIAL ONE (14:35)
[2019-08-09] MEDS ORDERED: Metoclopramide HCl 10 MG/2 ML VIAL ONE (14:35)
[2019-08-09] MEDS ORDERED: Dexamethasone 4 mg/ml Vial ONE ×2 (14:35→14:36)
== END 2019-08-09 15:30 | disposition home or self-care (01) ==
LOC: ERS 13:25
DX: G43.909 Migraine, unspecified, not intractable, without status migrainosus (principal); I10 Essential (primary) hypertension
CPT/HCPCS: 96365; 96375; J1100; J1885; J2405; J2765